=== PATIENT | female | born 1990 ===

== ENCOUNTER 2017-02-16 19:35 | Emergency (ER) | payer MEDICAID ==
[2017-02-16 20:25] LABS: BASO # 0.1 K/uL (0.0-0.2); BASO % 0.9 % (0.0-2.0); EOS # 0.1 K/uL (0.0-0.7); EOS % 1.3 % (0.0-4.0); HEMATOCRIT 40.6 % (34.0-47.0); LYMPH # 2.7 K/uL (1.0-4.3); LYMPH % 47.2 % (20.0-40.0); MEAN CELL VOLUME 88.3 fL (81.0-99.0); MEAN CORPUSCULAR HEMOGLOBIN 29.4 pg (27.0-31.0); MEAN CORPUSCULAR HGB CONC 33.3 g/dL (33.0-37.0); MEAN PLATELET VOLUME 8.2 fL (7.2-11.7); MONO # 0.4 K/uL (0.0-0.8); MONO % 7.2 % (0.0-10.0); RED CELL DISTRIBUTION WIDTH 13.5 % (11.5-14.5); WHITE BLOOD COUNT 5.8 K/uL (4.8-10.8)
[2017-02-16 20:36] LABS: RBC URINE 1 /hpf (0-3); URINE BACTERIA RARE (<OCC); URINE BILIRUBIN NEGATIVE (NEGATIVE); URINE BLOOD 3+ (NEGATIVE); URINE COLOR Colorless (YELLOW); URINE GLUCOSE (UA) NORMAL (Normal); URINE KETONE NEGATIVE (NEGATIVE); URINE LEUKOCYTE ESTERASE TRACE Leu/uL (Negative); URINE PROTEIN NEGATIVE (NEGATIVE); URINE UROBILINOGEN NORMAL mg/dL (0.2-1.0); WBC URINE 4 /hpf (0-5)
[2017-02-16 20:39] LABS: ALKALINE PHOSPHATASE 58 U/L (38-126); ALT/SGPT 44 U/L (9-52); AST/SGOT 34 U/L (14-36); BILIRUBIN,TOTAL 0.9 mg/dL (0.2-1.3); BLOOD UREA NITROGEN 12 mg/dL (7-17); CALCIUM 8.7 mg/dl (8.6-10.4); CARBON DIOXIDE 24 mmol/L (22-30); CHLORIDE 102 mmol/L (98-107); GFR AFRICAN-AMERICAN > 60; GLUCOSE,RANDOM 78 mg/dL (65-105); POTASSIUM 3.6 mmol/L (3.6-5.2); SODIUM 136 mmol/L (132-148); TOTAL PROTEIN 8.6 g/dL (6.3-8.3)
--- NOTE | 2017-02-16 22:05 | C.PDOC ---
History Of Present Illness 26 y/o female presents to ED requesting medication refill for HTN. Oatient states she has had clinical hypertension since age 15. Patient has multiple evaluations by [facility] with extensive negative work up except proteineria. No other complaints at this time Time Seen by Provider: 02/16/17 19:58 Chief Complaint (Nursing): High Blood Pressure History Per: Patient History/Exam Limitations: no limitations Onset/Duration Of Symptoms: Days Current Symptoms Are (Timing): Still Present Associated Symptoms: denies: Chest Pain Past Medical History Reviewed: Historical Data, Nursing Documentation, Vital Signs Vital Signs: Last Vital Signs Temp 97.8 F 02/16/17 22:33 Pulse 88 02/16/17 22:33 Resp 20 02/16/17 22:33 BP 123/82 02/16/17 22:33 Pulse Ox 97 02/16/17 22:33 - Medical History PMH: No Chronic Diseases, HTN Surgical History: No Surg Hx Family History: States: No Known Family Hx - Social History Hx Alcohol Use: Yes Hx Substance Use: No - Immunization History Hx Tetanus Toxoid Vaccination: No Hx Influenza Vaccination: No Hx Pneumococcal Vaccination: No Review Of Systems Constitutional: Negative for: Fever, Chills Cardiovascular: Negative for: Chest Pain Respiratory: Negative for: Shortness of Breath Gastrointestinal: Negative for: Nausea, Vomiting Skin: Negative for: Rash Neurological: Negative for: Weakness, Numbness Physical Exam - Physical Exam Appears: Non-toxic, No Acute Distress, Other (Morbidly obese) Skin: Warm, Dry, No Rash Head: Atraumatic, Normacephalic Oral Mucosa: Moist Cardiovascular: Rhythm Regular Respiratory: Normal Breath Sounds, No Rales, No Rhonchi, No Wheezing Gastrointestinal/Abdominal: Soft, No Tenderness, No Guarding, No Rebound Neurological/Psych: Oriented x3 ED Course And Treatment - Laboratory Results Result Diagrams: 02/16/17 20:18 02/16/17 20:18 Lab Interpretation: Normal (trop neg.) Urine POC: Negative ECG: Interpreted By Me ECG Rhythm: Sinus Rhythm ECG Interpretation: Normal Rate From EC (BPM) O2 Sat by Pulse Oximetry: 99 (RA) Pulse Ox Interpretation: Normal - Radiology CXR: Interpreted by Me CXR Interpretation: Yes: No Acute Disease Progress Note: vasotec 40 mg and Clonidine 0.2 mg PO Reevaluation Time: 22:04 Reassessment Condition: Improved Medical Decision Making Medical Decision Making: poorly controlled BP, pt hypertensive since age 15 with ? w/u performed No HTN meds (again, unknown) since "the Summer" Start/Restart ACDI considering RVH and Rightward access noted on CXR and EKG Consider adding BB next outpatient visit. Disposition Doctor Will See Patient In The: Office Counseled Patient/Family Regarding: Studies Performed, Diagnosis - Disposition Referrals: [facility] [Outside] [facility] [Outside] Non [facility] Provider, [Primary Care Provider] - Disposition: HOME/ ROUTINE Disposition Time: 22:05 Condition: GOOD Additional Instructions: sigue Vasotec 40 mg diario (en la manana con/sin comida) Sigue en nuestro [facility] (gratis) en 2-3 semanas para re-evaluar choe pression jesse Mas evaluacion' de choe pression jesse de ser hecho Lleva TODAS los datos que tiene por venkata desda 15 anos de edad Prescriptions: Enalapril Maleate [Vasotec] 40 mg PO DAILY #30 tab Instructions: Hypertension (ED) Forms: [employer] (Thai) Print Language: BULGARIAN - Clinical Impression Clinical Impression: Hypertension - Scribe Statement The provider has reviewed the documentation as recorded by the Scribe Manuel Malin All medical record entries made by the Scribe were at my direction and personally dictated by me. I have reviewed the chart and agree that the record accurately reflects my personal performance of the history, physical exam, medical decision making, and the department course for this patient. I have also personally directed, reviewed, and agree with the discharge instructions and disposition.
[2017-02-16 22:19] VITALS: BP 123/82
[2017-02-16 22:36] VITALS: PULSE 88; RESP 20; TEMP 97.8
[2017-02-17 00:15] VITALS: O2SAT 99
--- NOTE | 2017-02-17 08:10 | RAD ---
PROCEDURE: CHEST RADIOGRAPH, 1 VIEW HISTORY: Shortness of breath COMPARISON: None available. FINDINGS: LUNGS: Clear. PLEURA: No pneumothorax or pleural fluid seen. CARDIOVASCULAR: Normal. OSSEOUS STRUCTURES: No significant abnormalities. VISUALIZED UPPER ABDOMEN: Normal. OTHER FINDINGS: None. IMPRESSION: No active disease.
--- NOTE | 2017-02-17 10:08 | CARD ---
APPROVED REPORT EKG Measurement Heart [id number] <Conclusion> Normal sinus rhythm Rightward axis Borderline ECG
== END 2017-02-16 22:35 | disposition home or self-care (01) ==
LOC: C.ER 19:35 → SUPCPDRO 19:35 → C.ER 22:35
DX: I10 Essential (primary) hypertension (principal)